=== PATIENT | male | born 1980 | race African-American/Black ===

== ENCOUNTER 2017-07-26 02:46 | Emergency (ER) | payer MEDICAID, OTHER ==
[~2017-07-26] VITALS: Ht 172.7 cm; Wt 61.2 kg
[2017-07-26 03:01] VITALS: BP 141/80
[2017-07-26] MEDS ORDERED: MORPHINE SULFATE 4 MG/ML SYR/VIAL IM ONE (06:45)
== END 2017-07-26 08:21 | disposition left against medical advice (07) ==
LOC: ER 02:48
DX: M54.16 Radiculopathy, lumbar region (principal); Z88.1 Allergy status to other antibiotic agents
CPT/HCPCS: 72131

== ENCOUNTER 2017-08-09 17:45 | Emergency (ER) | payer MEDICAID, OTHER ==
[~2017-08-09] VITALS: Ht 172.7 cm; Wt 65.8 kg
[2017-08-09] MEDS ORDERED: ACETAMINOPHEN 325 MG TAB PO ONE (19:00)
[2017-08-09] MEDS ORDERED: KETOROLAC TROMETH 60MG/2ML VIAL IM ONE (19:00)
[2017-08-09] MEDS ORDERED: MORPHINE SULFATE 10 MG/ML INJ 1ML SDV IM ONE (19:00)
[2017-08-09] MEDS ORDERED: GABAPENTIN 400 MG CAP PO ONE (19:00)
[2017-08-09 20:16] VITALS: BP 136/82
== END 2017-08-09 21:46 | disposition home or self-care (01) ==
LOC: ER 17:45
DX: S33.5XXA Sprain of ligaments of lumbar spine, initial encounter (principal); M54.16 Radiculopathy, lumbar region; M79.1 Myalgia; X58.XXXA Exposure to other specified factors, initial encounter; Z88.2 Allergy status to sulfonamides; Y93.89 Activity, other specified; Y99.8 Other external cause status; Y92.89 Other specified places as the place of occurrence of the external cause
CPT/HCPCS: 96372; 99284; J1885; J2270